=== PATIENT | female | born 1945 | race Caucasian/White ===

== ENCOUNTER → 2019-11-18 10:04 | Outpatient (CLI) | payer MEDICARE, SELFPAY ==
--- NOTE | ~2019-11-18 | XR_ITS ---
XR shoulder RT min 2V DATE: 11/18/2019 10:48 INDICATION: Right shoulder pain TECHNIQUE: 4 views COMPARISON: None FINDINGS: No fracture or dislocation, periosteal reaction or bone destruction or abnormal soft tissue calcification of the right shoulder. There are numerous right hilar and mediastinal calcified nodes. IMPRESSION: No significant radiographic abnormality of right shoulder Reviewed, dictated and finalized at location A.
--- NOTE | ~2019-11-18 | XR_ITS ---
XR knee LT 3V DATE: 11/18/2019 10:47 INDICATION: Left knee pain TECHNIQUE: [place] and AP and lateral views COMPARISON: None FINDINGS: There is lateral subluxation and severe joint space narrowing and hypertrophic spurring at the patellofemoral joint. There is moderate osteoarthritic change at the medial and mild osteoarthritic change at the lateral c ompartments. Prominent apparent suprapatellar bursa loose body is noted. No fracture or dislocation or joint effusion. No periosteal reaction or bone destruction or chondroca lcinosis. Femoral and popliteal artery calcifications. IMPRESSION: Osteoarthritic change, most prominent at the patellofemoral joint Reviewed, dictated and finalized at location A.
--- NOTE | ~2019-11-18 | XR_ITS ---
XR cervical spine 4-5V DATE: 11/18/2019 10:48 INDICATION: Neck pain TECHNIQUE: Neck pain COMPARISON: None FINDINGS: There is straightening of the cervical spine, which may be secondary to muscle spasm. No fracture or dislocation or locked facet or prevertebral soft tissue swelling. C1 and C2 are normal ly aligned and the odontoid process is intact. There is moderate degenerative disc disease at C4-5, C5-6, prominent posterior spurring at C5-6. Ther e is moderately severe degenerative disc disease and moderately prominent posterior spurring at C6-7. There is extensive degenerative change at the apophyseal and uncovertebral joints. Pacemaker leads are noted. IMPRESSION: Extensive degenerative changes of the cervical spine Straightening of the cervical spine, which may be secondary to muscle spasm Reviewed, dictated and finalized at location A.
== END ==
PROVIDERS: PCP Family Medicine; Visit Provider Family Medicine
DX: M25.562 Pain in left knee (principal); G89.29 Other chronic pain; M25.511 Pain in right shoulder; M54.2 Cervicalgia; M17.12 Unilateral primary osteoarthritis, left knee; M53.82 Other specified dorsopathies, cervical region
CPT/HCPCS: 72050; 73030; 73562

== ENCOUNTER 2020-01-18 11:00 | Outpatient (RCR) | payer MEDICARE, SELFPAY ==
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
--- NOTE | 2019-12-28 09:07 | PCPTNOTE ---
Patient called & cancelled scheduled appointment this date due to not feeling well.
--- NOTE | 2019-12-30 11:25 | PTOPEVAL ---
Thank you for referring Jovana Desir to [facility]. Please review, sign, date and return this plan of care [place]. Pt has received 12 PT visits from 12/02/19-12/30/19 to address neck, right shoulder and left LE impairments. She is progress with strength, range, pain and performance with daily act. Recommend 1-2x/wk x 3 wk to achieve remaining therapy goals. I agree with and certify that the following plan of care is medically necessary. Referring Physician Date Admitting Provider: Attending Provider: Gabino Medley MD Referring Provider: *PT Outpatient Evaluation Start: 12/02/19 09:33 Freq: Status: Active Protocol: Document 12/30/19 08:38 CAP (Rec: 12/30/19 09:21 CAP [email or web address]) Therapy Assessment Status Assessment Status Progress/re-evaluation Evaluation Information Problem Diagnosis shoulder, neck and knee pain Onset 09/28 Cause fall down steps Additional Evaluation Detail Pt will exercise at the [facility] for bike and TM Pt fell carrying laundry up 2 steps at home. She hit her right arm and left knee on the steps and her neck. She went to Urgent Care, but no x-ray. She was seen by her PCP on 07/29 where x-rays were taken. Subjective Information Pt reports shoulder is mildly Query Text:As Reported By Patient/ sore with reaching motions.She Family is able to reach overhead with assist of other hand. she is able to carry or lift objects better. Reports her knee feels better and is able to tolerate walking 1 mile daily. Pain Assessment Timing of Pain Assessment Timing of Pain Assessment Re-assessment Pain Scale Pain Scale Used Numeric (1 - 10) Self Report Pain Assessment Left Knee(s) Reported Pain Level 0 Pain Description Tightness Pain Frequency Intermittent Lowest Pain Intensity 0 Greatest Pain Intensity 2 Pain Aggravating Factors Prolonged Position,Sitting Pain Behaviors None Interventions Used By Clinicians Activity or ADL's Right Lateral Neck Reported Pain Level 0 Pain Description Soreness Pain Frequency Intermittent Lowest Pain Intensity 0 Greatest Pain Intensity 4 Pain Behaviors None Pain Relief Interventions Used By Exercise,Heat Patient R
[2020-01-18 10:53] VITALS: BP_SYST 170
--- NOTE | 2020-01-18 12:22 | PTOPEVAL ---
Thank you for referring Jovana Desir to [facility]. Please review, sign, date and return this plan of care [place]. Pt has been seen for 17 physical therapy visits from 12/02/19-01/18/20 to address her neck, shoulder and knee impairments related to a fall. She demonstrates improvement with all areas. She is able to perform normal daily activities and is indep with her HEP. DC skilled therapy at this time with pt having reaching maximal potential with skilled therapy. I agree with and certify that the following plan of care is medically necessary. Referring Physician Date Attending Provider: Gabino Medley MD Discharge Summary *PT Outpatient Evaluation Start: 12/02/19 09:33 Freq: Status: Active Protocol: Document 01/18/20 10:53 MAREK (Rec: 01/18/20 11:11 CAP [email or web address]) Therapy Assessment Status Assessment Status Assessment Status Re-evaluation Evaluation Information Problem Diagnosis shoulder, neck and knee pain Onset 09/28 Cause fall down steps Additional Evaluation Detail Pt will exercise at the [facility] for bike and TM Pt fell carrying laundry up 2 steps at home. She hit her right arm and left knee on the steps and her neck. She went to Urgent Care, but no x-ray. She was seen by her PCP on 07/29 where x-rays were taken. Subjective Information Reports she is able to reach Query Text:As Reported By Patient/ into overhead cabinets better Family without increased pain. Denies any problems with her HEP. Denies any knee pain or swelling with her daily walking. Reports she is more aware of her posture and body mechanics , but still has limited max with prolonged squating/ lifting motion.0 Pain Assessment Timing of Pain Assessment Timing of Pain Assessment Re-assessment Pain Scale Pain Scale Used Numeric (1 - 10) Self Report Pain Assessment Left Knee(s) Reported Pain Level 0 Right Lateral Neck Reported Pain Level 0 Right Shoulder(s) Reported Pain Level 1 Pain Aggravating Factors Lifting Pain Relief Interventions Used By Exercise,Medication Patient Pain Score Pain Score 0,0,1: Self Report Cervical and Lumbar ROM Cervical ROM Cervical Flexion (0-60) 60 Query Text:Active in Degrees Cervi
== END 2020-01-18 13:21 | disposition home or self-care (01) ==
LOC: ANHPT 11:00
PROVIDERS: PCP Family Medicine; Visit Provider Family Medicine
DX: M25.511 Pain in right shoulder (principal); G89.29 Other chronic pain; M54.2 Cervicalgia; M25.562 Pain in left knee
CPT/HCPCS: 97110; 97140; 97163; 97530

== ENCOUNTER 2020-12-23 11:17 | Outpatient (CLI) | payer MEDICARE, SELFPAY | END 2020-12-23 11:18 | disposition home or self-care (01) | LOC: ANHCOVIDVC 11:17 | PROVIDERS: PCP Family Medicine | DX: Z23 Encounter for immunization (principal) | CPT/HCPCS: 0001A; 91300 ==

== ENCOUNTER 2021-01-13 11:15 | Outpatient (CLI) | payer MEDICARE, SELFPAY | END 2021-01-13 11:16 | disposition home or self-care (01) | LOC: ANHCOVIDVC 11:15 | PROVIDERS: PCP Family Medicine | DX: Z23 Encounter for immunization (principal) | CPT/HCPCS: 0002A; 91300 ==

== ENCOUNTER 2021-11-05 11:59 | Emergency (ER) | payer MEDICARE, SELFPAY ==
[2021-11-05 12:10] VITALS: BP 153/95; PULSE 76; RESP 18; TEMP 36.7; O2SAT 98
--- NOTE | 2021-11-05 12:53 | ED.EYEPROB ---
HPI - Eye Problem General Chief complaint: Eye Problems Stated complaint: R eye redness Time Seen by Provider: 11/05/21 12:06 History of Present Illness HPI Narrative: 75-year-old female presents the emergency room with blood in right eye. Patient states she noticed blood in her right eye yesterday, associated with no visual loss. Patient states she has an occasional cotton-like floater. Denies pain. Patient denies changes in her central or peripheral vision. No history of glaucoma, cataracts, or macular degeneration. Patient does admit having complications managing INR level within normal range recently. Denies cough, sneezing, injury or trauma to the eye. Related Data Home Medications Medication Instructions Recorded Confirmed budesonide-formoterol HFA 160 2 puff INHALATION Q12H 07/23/19 10/17/21 mcg-4.5 mcg/actuation aerosol inhaler omega-3 fatty acids 1,000 mg 1,000 mg PO DAILY 07/23/19 10/17/21 capsule vitamin E mixed 1,000 unit capsule unit PO 07/23/19 10/17/21 albuterol sulfate 90 mcg/actuation 2 puff INHALATION Q4H PRN gm 12/10/19 10/17/21 aerosol inhaler warfarin 5 mg tablet 5 mg PO DAILY 07/26/20 10/17/21 Allergies Allergy/AdvReac Type Severity Reaction Status Date / Time codeine Allergy Unknown unk Verified 11/05/21 14:05 Penicillins Allergy Unknown Urticaria Verified 11/05/21 14:05 tetanus toxoid, adsorbed Allergy Unknown unk Verified 11/05/21 14:05 Tetanus Vaccines and Toxoid Allergy Unknown unk Verified 11/05/21 14:05 Review of Systems Review of Systems: CONSTITUTIONAL: Denies fever, chills, or sweats. EYES: Denies visual loss or discharge. ENT: Denies rhinorrhea, congestion, sore throat, or otalgia. CARDIOVASCULAR: Denies chest pain, palpitations, or edema. RESPIRATORY: Denies cough or dyspnea. GASTROINTESTINAL: Denies abdominal pain, nausea, vomiting, or diarrhea. GENITOURINARY: Denies dysuria or hematuria. SKIN: Denies rash or itching. MUSCULOSKELETAL: Denies back pain, joint pain, or myalgia. NEUROLOGIC: Denies headache, numbness, dizziness, or weakness. PSYCHIATRIC: Denies anxiety or depression. [facility] Past Medical History Medical History BMI 32.0-32.9,adult BMI 33.0-33.9,adult BMI 34.0-34.9,adult BMI 36.0-36.9,adult BMI 37.0-37.9, adult Cardiac arrhythmia Cellulitis Cellulitis of neck Chronic depression Chronic neck pain Chronic pain of left knee Chronic right shoulder pain Confusion (~09/21/21) Degenerative arthritis of knee, bilateral Diabetes Diabetic peripheral neuropathy associated with type 2 diabetes mellitus (~09/26/21) neuropathy right toes Hemoglobin A1C between 7% and 9% indicating borderline diabetic control A1C 7.2 11/24 Nail fungus (~09/26/21) fungus in all of the toenails Pacemaker Pain in left hand Persistent microalbuminuria associated with type 2 diabetes mellitus (09/22/21) microalbumin ratio of 75 on 09/22/21 Rash Right knee pain Sarcoidosis of lung Spider bite Ulcer UTI (urinary tract infection) Vaginal candidiasis Vitamin B12 deficiency anemia Family History Family History Father Diabetes mellitus Hypertension Family history of cardiovascular disease Mother Diabetes mellitus Family history of malignant neoplasm of breast Social History Social History Smoking status: Never smoker Alcohol intake: current Substance use: never Substance use type: does not use Gender identity (if verbalized by the patient): Female Exam Narrative: GENERAL: Well-appearing, well-nourished, and in no acute distress. HEAD: Normocephalic, atraumatic. EYES: PERRLA and EOMI. subconjunctival hemorrhage noted to the left medial anterior chamber. Peripheral and central vision normal. Small crescent shaped abrasion noted to the 6 o'clock position of the right eye. ENT: Nares clear, no rhino
[2021-11-05 13:47] LABS: Basophils Percent Auto 0.2 % (0.2-1.2); Eosinophils Absolute Auto 0.1 K/mm3 (0-0.3); Eosinophils Percent Auto 1.3 % (0-4.4); Hematocrit 39.5 % (37.0-47.0); Hemoglobin 12.9 g/dL (12.0-15.0); Immature Granulocyte Absolute 0.02 K/mm3 (0.00-0.031); Immature Granulocyte Percent A 0.4 % (0-0.5); Lymphocytes Absolute Auto 1.26 K/mm3 (0.9-3.2); Lymphocytes Percent Auto 26.4 % (18.3-44.2); Mean Corpuscular HGB Conc 32.7 g/dl (32-36); Mean Corpuscular Hemoglobin 30.9 pg (26-34); Mean Corpuscular Volume 94.7 fl (80-100); Mean Platelet Volume 10.1 fl (7.4-10.4); Monocytes Absolute Auto 0.5 K/mm3 (0.1-0.6); Monocytes Percent Auto 9.4 % (2.6-8.5); Neutrophils Percent Auto 62.3 % (45.5-73.1); Platelet Count Result 183 k/mm3 (150-375); Red Blood Count 4.17 M/mm3 (4.2-5.4); Red Cell Distribution Width 14.9 % (11.5-14.5); White Blood Count 4.8 K/mm3 (4.5-10.0)
[2021-11-05 14:14] LABS: INR 1.9; Prothrombin Time 21.5 Seconds (11.1-14.7)
[2021-11-05 14:15] LABS: Partial Thromboplastin Time 38.9 SECONDS (22.3-36.8)
[2021-11-05 15:06] VITALS: BP 154/93; PULSE 81; RESP 18; O2SAT 100
== END 2021-11-05 15:10 | disposition home or self-care (01) ==
PROVIDERS: Emergency Provider Nurse Practitioner Family; PCP Family Medicine
DX: H11.31 Conjunctival hemorrhage, right eye (principal); S05.01XA Injury of conjunctiva and corneal abrasion without foreign body, right eye, initial encounter; E11.42 Type 2 diabetes mellitus with diabetic polyneuropathy; M17.0 Bilateral primary osteoarthritis of knee; D51.9 Vitamin B12 deficiency anemia, unspecified; Z95.0 Presence of cardiac pacemaker; Z87.440 Personal history of urinary (tract) infections; Z79.84 Long term (current) use of oral hypoglycemic drugs; Z79.01 Long term (current) use of anticoagulants; X58.XXXA Exposure to other specified factors, initial encounter
CPT/HCPCS: 36415; 85025; 85610; 85730; 99283; A9270

== ENCOUNTER 2022-05-31 13:34 | Emergency (ER) | payer MEDICARE, SELFPAY ==
[2022-05-31 13:52] VITALS: BP 152/67; PULSE 68; RESP 16; TEMP 36.7; O2SAT 100
--- NOTE | 2022-05-31 14:21 | ED.HEATRA ---
HPI - Head Injury General Chief complaint: Head Injury Stated complaint: Left Eye Brusing, Swelling Time Seen by Provider: 05/31/22 14:07 History of Present Illness HPI Narrative: 76-year-old female presents to the emergency room for complaints of swelling and tenderness to her left brow. Patient states she recently experienced a ground-level syncopal fall where she was managed [facility] in [place]. Patient was on Coumadin and found to have a head bleed. Patient states that she was discharged from the hospital 1 week ago after repeated imaging showed no worsening hemorrhage. Patient has been complaining of swelling and mild tenderness to her left brow where there are 2 healing abrasions. Patient was instructed to come to the emergency room for further evaluation. Patient denies any focal neurodeficits. Patient was ambulatory to the emergency room alert and oriented x4. Related Data Home Medications Medication Instructions Recorded Confirmed omega-3 fatty acids 1,000 mg 1,000 mg PO DAILY 07/23/19 02/22/22 capsule vitamin E mixed 1,000 unit capsule unit PO 07/23/19 02/22/22 ascorbate calcium (vitamin C) 500 500 mg PO DAILY 05/28/22 mg tablet citalopram 20 mg tablet 20 mg PO DAILY 05/28/22 metoprolol tartrate 50 mg tablet 50 mg PO BID 05/28/22 omeprazole 20 mg capsule,delayed 20 mg PO DAILY 05/28/22 release acetaminophen 325 mg capsule 325 mg PO Q6H PRN 05/30/22 polyethylene glycol 3350 17 gram 17 g PO DAILY 05/30/22 oral powder packet (Miralax) Allergies Allergy/AdvReac Type Severity Reaction Status Date / Time codeine Allergy Unknown unk Verified 11/05/21 14:05 Penicillins Allergy Unknown Urticaria Verified 11/05/21 14:05 tetanus toxoid, adsorbed Allergy Unknown unk Verified 11/05/21 14:05 Tetanus Vaccines and Toxoid Allergy Unknown unk Verified 11/05/21 14:05 Review of Systems Review of Systems: CONSTITUTIONAL: Denies fever, chills, or sweats. EYES: Denies visual changes, redness, or discharge. ENT: Denies rhinorrhea, congestion, sore throat, or otalgia. CARDIOVASCULAR: Denies chest pain, palpitations, or edema. RESPIRATORY: Denies cough or dyspnea. GASTROINTESTINAL: Denies abdominal pain, nausea, vomiting, or diarrhea. GENITOURINARY: Denies dysuria or hematuria. SKIN: Reports swelling and tenderness to left brow MUSCULOSKELETAL: Denies back pain, joint pain, or myalgia. NEUROLOGIC: Denies headache, numbness, dizziness, or weakness. PSYCHIATRIC: Denies anxiety or depression. [facility] Past Medical History Medical History BMI 31.0-31.9,adult BMI 32.0-32.9,adult BMI 33.0-33.9,adult BMI 34.0-34.9,adult BMI 36.0-36.9,adult BMI 37.0-37.9, adult Cardiac arrhythmia Cellulitis Cellulitis of neck Chronic depression Chronic neck pain Chronic pain of left knee Chronic right shoulder pain Closed head injury with loss of consciousness of unknown duration (05/19/22) Confusion (~09/21/21) Degenerative arthritis of knee, bilateral Diabetes Diabetic peripheral neuropathy associated with type 2 diabetes mellitus (~09/26/21) neuropathy right toes Hemoglobin A1C between 7% and 9% indicating borderline diabetic control A1C 7.2 11/24 Nail fungus (~09/26/21) fungus in all of the toenails Obesity (BMI 30.0-34.9) Pacemaker Pain in left hand Persistent microalbuminuria associated with type 2 diabetes mellitus (09/22/21) microalbumin ratio of 75 on 09/22/21 Rash Right knee pain Sarcoidosis of lung Spider bite Subarachnoid hemorrhage following injury with brief loss of consciousness but without open intracranial wound (05/19/22) 8 mm sub parenchymal hemorrhage left frontal white matter on CT Ulcer UTI (urinary tract infection) Vaginal candidiasis Vitamin B12 deficiency anemia Family History Family History Father Diabetes mellitus Hypertension Family history of cardiovascular disease Mother Diabetes mellitu
[2022-05-31 14:31] VITALS: BP 128/64; PULSE 62; RESP 15; O2SAT 100
== END 2022-05-31 14:59 | disposition home or self-care (01) ==
PROVIDERS: Emergency Provider Nurse Practitioner Family; PCP Family Medicine
DX: L03.211 Cellulitis of face (principal); L02.01 Cutaneous abscess of face; E11.42 Type 2 diabetes mellitus with diabetic polyneuropathy; E66.9 Obesity, unspecified; M17.0 Bilateral primary osteoarthritis of knee; F32.A Depression, unspecified; Z68.30 Body mass index [BMI] 30.0-30.9, adult; Z95.0 Presence of cardiac pacemaker; Z87.440 Personal history of urinary (tract) infections; D51.9 Vitamin B12 deficiency anemia, unspecified; Z79.84 Long term (current) use of oral hypoglycemic drugs
CPT/HCPCS: 99283

== ENCOUNTER 2022-12-11 13:05 | Emergency (ER) | payer MEDICARE, SELFPAY ==
--- NOTE | ~2022-12-11 | CT_ITS ---
EXAMINATION: CT brain wo con INDICATION: Head injury COMPARISON: 07/25/2004 TECHNIQUE: Standard unenhanced head CT. The dose-length product (DLP) was 605.33 mGy-cm. The mA was a djusted according to patient size. Iterative reconstruction technique was employed. FINDINGS: There is no acute intraparenchymal hemorrhage. No evidence of mass lesion. No evidence of a cute infarction. There is a small old infarct in the left frontoparietal region. There is mild perive ntricular and subcortical hypodensity probably related to small vessel ischemic disease. There is mil d prominence of the sulci and ventricles related to cerebral atrophy. Intracranial calcified cerebral atherosclerosis is noted. There are no extra-axial collections. There is no mass effect or midline s hift. Changes in the globes are likely from ocular lens surgery. The visualized sinuses and mastoid a ir cells are well aerated. IMPRESSION: 1. 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 2. Age related findings. Reviewed, dictated and finalized at location L.
[2022-12-11 13:30] VITALS: BP 135/68; PULSE 82; RESP 16; TEMP 36.4; O2SAT 97
[2022-12-11 19:41] VITALS: BP 165/95; PULSE 84; RESP 16; O2SAT 100
--- NOTE | 2022-12-11 20:11 | ED.HEATRA ---
HPI - Head Injury General Chief complaint: Head Injury Stated complaint: Head injury hx of brain injury Time Seen by Provider: 12/11/22 19:59 History of Present Illness HPI Narrative: Pt was picking up branches from fallen tree and tripped over a piece of wood sticking out of the ground and fell striking her head. Pt denies LOC. Pt has a history of a head injury in the past after a fall and wanted to be checked out. Pt denies BORREGO. Pt is not on blood thinners. Related Data Home Medications Medication Instructions Recorded Confirmed ascorbate calcium (vitamin C) 500 500 mg PO DAILY 05/28/22 09/27/22 mg tablet acetaminophen 325 mg capsule 325 mg PO Q6H PRN 05/30/22 09/27/22 omega 8-mmc-blf-fish oil 910 cap PO 09/27/22 09/27/22 mg-1,400 mg capsule ([place]-3 Fish Oil) omeprazole 20 mg capsule,delayed 20 mg PO DAILY PRN reflux 09/27/22 09/27/22 release donepezil 5 mg tablet (Aricept) 5 mg PO QHS 11/01/22 Allergies Allergy/AdvReac Type Severity Reaction Status Date / Time codeine Allergy Unknown unk Verified 12/11/22 13:06 Penicillins Allergy Unknown Urticaria Verified 12/11/22 13:06 tetanus toxoid, adsorbed Allergy Unknown unk Verified 12/11/22 13:06 Tetanus Vaccines and Toxoid Allergy Unknown unk Verified 12/11/22 13:06 Review of Systems Review of Systems: All systems reviewed & are unremarkable except as noted in HPI and below [facility] Past Medical History Medical History (Updated 12/11/22 @ 20:17 by Donald Campbell III, DO) At high risk for injury related to fall (05/19/22) BMI 29.0-29.9,adult BMI 31.0-31.9,adult BMI 32.0-32.9,adult BMI 33.0-33.9,adult BMI 34.0-34.9,adult BMI 36.0-36.9,adult BMI 37.0-37.9, adult Cardiac arrhythmia Cellulitis Cellulitis of neck Chronic depression Chronic neck pain Chronic pain of left knee Chronic right shoulder pain Closed head injury with loss of consciousness of unknown duration (05/19/22) Confusion (~09/21/21) Degenerative arthritis of knee, bilateral Diabetes Diabetic peripheral neuropathy associated with type 2 diabetes mellitus (~09/26/21) neuropathy right toes Hemoglobin A1C between 7% and 9% indicating borderline diabetic control A1C 7.2 11/24 Memory change Nail fungus (~09/26/21) fungus in all of the toenails Obesity (BMI 30.0-34.9) Overweight (BMI 25.0-29.9) Pacemaker Pain in left hand Persistent microalbuminuria associated with type 2 diabetes mellitus (09/22/21) microalbumin ratio of 75 on 09/22/21 . Ratio 17 on 09/28/2022. Rash Right knee pain Sarcoidosis of lung Spider bite Subarachnoid hemorrhage following injury with brief loss of consciousness but without open intracranial wound (05/19/22) 8 mm sub parenchymal hemorrhage left frontal white matter on CT Ulcer UTI (urinary tract infection) Vaginal candidiasis Vitamin B12 deficiency anemia Family History Family History Father Diabetes mellitus Hypertension Family history of cardiovascular disease Mother Diabetes mellitus Family history of malignant neoplasm of breast Social History Social History Smoking status: Never smoker Alcohol intake: former Substance use: never Substance use type: does not use Lack of Transportation: No Lack of Food: Never True Current Housing: I Have Housing Concerned About Future Housing: No Difficulty Paying Gas/Electric Bills: No Difficulty Paying for Meds: No Currently Unemployed: No Education: High School Diploma/GED Difficulty w/ Childcare or Family Care: No Living arrangements: with family Gender identity (if verbalized by the patient): Female Exam Const: General: healthy appearing and no acute distress Nutritional Appearance: well nourished Orientation/consciousness: patient oriented x3 Limitations: no limitations HENMT: Head: contusion and hematoma left frontal Eyes: Conjunctivae: conjunctivae
== END 2022-12-11 20:30 | disposition home or self-care (01) ==
PROVIDERS: Emergency Provider Emergency Medicine; PCP Family Medicine
DX: S00.93XA Contusion of unspecified part of head, initial encounter (principal); E11.42 Type 2 diabetes mellitus with diabetic polyneuropathy; E11.69 Type 2 diabetes mellitus with other specified complication; R80.1 Persistent proteinuria, unspecified; D86.0 Sarcoidosis of lung; E53.8 Deficiency of other specified B group vitamins; M17.0 Bilateral primary osteoarthritis of knee; E66.9 Obesity, unspecified; Z68.27 Body mass index [BMI] 27.0-27.9, adult; Z95.0 Presence of cardiac pacemaker; Z87.440 Personal history of urinary (tract) infections; Z79.84 Long term (current) use of oral hypoglycemic drugs; W18.09XA Striking against other object with subsequent fall, initial encounter
CPT/HCPCS: 70450; 99284

== ENCOUNTER 2023-02-20 12:35 | Emergency (ER) | payer MEDICARE, SELFPAY | END 2023-02-20 13:45 | disposition home or self-care (01) | LOC: EXPTROY 19:37 | PROVIDERS: Emergency Provider Nurse Practitioner Family; PCP Family Medicine | DX: L23.7 Allergic contact dermatitis due to plants, except food (principal) | CPT/HCPCS: 96372; 99213; G0463; J1100 ==